=== PATIENT | female | born 1955 | race Asian ===

== ENCOUNTER 2017-04-07 15:07 | Emergency (ER) | payer OTHER ==
[~2017-04-07] VITALS: Ht 162.6 cm; Wt 114.0 kg
[~2017-04-07 15:07] MED LIST: ALLO300T PO; AMOX875T PO; ASPI-496 PO; CHOL500014 PO; INDO50CA PO; LISI-170 PO; METF500T4 PO; PRAV40TA2 PO
[2017-04-07 16:39] LABS: HEMATOCRIT 44.6 % (34.6-47.8); HEMOGLOBIN 14.8 g/dL (11.7-16.4); WHITE BLOOD COUNT 8.1 x10^3/uL (3.4-10)
[2017-04-07] MEDS ORDERED: FLEC100T PO (16:46)
[2017-04-07] MEDS ORDERED: APIX5TAB PO (16:46)
[2017-04-07 16:49] LABS: BLOOD UREA NITROGEN 19 mg/dL (7-18)
[2017-04-07 16:53] LABS: ASPARTATE AMINO TRANSFERASE 56 U/L (15-37)
[2017-04-07] MEDS ORDERED: GADOBUTROL 10 MMOL/10 ML PFS ONE (17:12)
[2017-04-07 17:23] LABS: PATH.CAST-FLAG NOT PRESENT; SPERM-FLAG NOT PRESENT; SRC-FLAG NOT PRESENT; XTAL-FLAG NOT PRESENT; YLC-FLAG NOT PRESENT
[2017-04-07 17:53] VITALS: BP 128/79
== END 2017-04-07 18:53 | disposition home or self-care (01) ==
LOC: ED 18:47
DX: R20.9 Unspecified disturbances of skin sensation (principal); E78.5 Hyperlipidemia, unspecified; E11.9 Type 2 diabetes mellitus without complications; I10 Essential (primary) hypertension; M10.9 Gout, unspecified
CPT/HCPCS: 36415; 70553; 72110; 80053; 81001; 85025; 87086; 93005; 99285; A9585

== ENCOUNTER → 2017-05-30 | Outpatient (CLI) | payer OTHER ==
[~2017-05-30] MED LIST changes: +APIX5TAB PO; -CHOL500014 PO; +CHOL500045 PO; +FLEC100T PO
== END | disposition home or self-care (01) ==
LOC: CFH 06:36
PROVIDERS: ATTEND Family Medicine
DX: R10.2 Pelvic and perineal pain (principal)
CPT/HCPCS: 76856

== ENCOUNTER 2019-01-28 10:38 | Emergency (ER) | payer OTHER ==
[~2019-01-28] VITALS: Ht 167.6 cm; Wt 110.7 kg
[~2019-01-28 10:38] MED LIST changes: -INDO50CA PO; +INDO50CA5 PO; +METF500T17 PO; -METF500T4 PO
[2019-01-28] MEDS ORDERED: ASPIRIN 81 MG TABLET CHEW PO ONE (13:00)
--- NOTE | 2019-01-28 13:09 | NUR ---
FROM LOBBY TO ROOM AT THIS TIME
--- NOTE | 2019-01-28 13:10 | NUR ---
BJORN RN: PT PRESENTED TO ED D/T N/V AND LIGHTHEADEDNESS X1 WEEK. PT STATES FEELING INCREASINGLY WORSE SINCE THIS AM. PT ALSO STATES HAS SOB. +NONPRODUCTIVE COUGH. FAMILY AT BEDSIDE.
[2019-01-28] MEDS ORDERED: SIMV5TAB14 PO (13:12)
[2019-01-28 13:31] LABS: MEAN CORPUSCULAR HEMOGLOBIN 28.7 pg (27.0-34.8); MEAN CORPUSCULAR HGB CONC 32.5 g/dL (32.4-35.8); MEAN CORPUSCULAR VOLUME 88.1 fL (80-100); MEAN PLATELET VOLUME 6.8 fL (7.4-10.4); PLATELET COUNT 355 x10^3/uL (130-400); RED BLOOD COUNT 5.13 x10^6/uL (3.82-5.3); RED CELL DISTRIBUTION WIDTH 13.7 % (9.6-15.2)
[2019-01-28 13:42] LABS: ALBUMIN 3.7 g/dL (3.4-5.0); ANION GAP 9 mmol/L (5-15); CALCIUM 8.8 mg/dL (8.5-10.1); CHLORIDE 105 mmol/L (98-107)
[2019-01-28] MEDS ORDERED: ASPIRIN 81 MG TABLET CHEW ONE (13:44)
[2019-01-28 13:47] LABS: CREATININE 1.21 mg/dL (0.55-1.02); TROPONIN I < 0.015 ng/mL (0.000-0.045)
--- NOTE | 2019-01-28 13:56 | NUR ---
DR PENALOZA AT BEDSIDE, PT ASSESSMENT & POC DISCUSSED, QUESTIONS ANSWERED. CALL LIGHT W/I REACH, FAMILY AT BEDSIDE.
[2019-01-28] MEDS ORDERED: SODIUM CHLORIDE 0.9%, 500ML IVBOLUS ONE (14:00)
[2019-01-28 14:14] LABS: BASOPHILS # (AUTO) 0.14 x10^3/uL (0-0.1); BASOPHILS % (AUTO) 1 % (0-1); EOSINOPHILS # (AUTO) 0.12 x10^3/uL (0-0.4); EOSINOPHILS % (AUTO) 1 % (1-7); LYMPHOCYTES # (AUTO) 1.62 x10^3/uL (1-3.4); LYMPHOCYTES % (AUTO) 10 % (22-44); MD SCAN; MONOCYTES # (AUTO) 0.75 x10^3/uL (0.2-0.8); MONOCYTES % (AUTO) 5 % (2-9); NEUTROPHILS # (AUTO) 13.64 x10^3/uL (1.8-6.8); NEUTROPHILS % (AUTO) 84 % (42-75)
[2019-01-28] MEDS ORDERED: OMNIPAQUE 350 MG/ML, 100ML BOTTLE ONE (15:30)
--- NOTE | 2019-01-28 15:37 | NUR ---
PT OOB AND AMBULATED UPRIGHT STEADY GAIT, SP02 MONITORED DURING ACTIVITY. SP02 MAINTAINED GREATER THAN 96% AND HR BETWEEN 88-92. DR PENALOZA UPDATED.
[2019-01-28] MEDS ORDERED: CEFTRIAXONE PMX 1GM/50ML 50 ML ONE (15:52)
[2019-01-28] MEDS ORDERED: AZITHROMYCIN 500 MG TABLET ONE (15:52)
[2019-01-28] MEDS ORDERED: AZITHROMYCIN 500 MG TABLET PO ONE (16:00)
[2019-01-28] MEDS ORDERED: CEFTRIAXONE PMX 1GM/50ML 50 ML IV ONE (16:00)
[2019-01-28 16:31] VITALS: BP 130/70
--- NOTE | 2019-01-28 16:32 | NUR ---
PT INSTRUCTED ON USE OF IS, EXCELLENT RTN DEMONSTRATION VOL 1500ML. Patient/Caregiver given discharge instructions and they have confirmed that they understand the instructions. Patient ambulatory with steady gait.
== END 2019-01-28 16:33 | disposition home or self-care (01) ==
LOC: ED 14:20
DX: J15.9 Unspecified bacterial pneumonia (principal); I10 Essential (primary) hypertension; E11.9 Type 2 diabetes mellitus without complications; I48.91 Unspecified atrial fibrillation
CPT/HCPCS: 36415; 71046; 71260; 80048; 82040; 83690; 83880; 84484; 85025; 93005; 96365; 99284; J0696; J7040; Q9967

== ENCOUNTER 2019-02-10 06:38 | Emergency (ER) | payer OTHER ==
[~2019-02-10] VITALS: Ht 165.1 cm; Wt 112.5 kg
[~2019-02-10 06:38] MED LIST changes: +SIMV5TAB14 PO
--- NOTE | 2019-02-10 06:51 | NUR ---
Pt presents to ed c/o sob this am. States recent tx for pneumonia w/ abx. Denies any associated cp. States sob worse while lying down. No increased wob noted. Talking in full sentences. Lung sounds clear in all nguyen. All monitoring applied. Vss. Call light within reach. Family at bedside.
--- NOTE | 2019-02-10 06:52 | NUR ---
Report given to Gilberto nick.
[2019-02-10] MEDS ORDERED: ALBUTEROL/IPRATROPIUM 2.5MG/0.5MG, 3 ML ONE (07:28)
[2019-02-10] MEDS ORDERED: ALBUTEROL/IPRATROPIUM 2.5MG/0.5MG, 3 ML NPPB SCH (07:30)
[2019-02-10 07:41] LABS: BASOPHILS # (AUTO) 0.03 x10^3/uL (0-0.1); BASOPHILS % (AUTO) 0 % (0-1); EOSINOPHILS # (AUTO) 0.26 x10^3/uL (0-0.4); EOSINOPHILS % (AUTO) 3 % (1-7); LYMPHOCYTES % (AUTO) 29 % (22-44); MD NO; MEAN CORPUSCULAR HEMOGLOBIN 28.8 pg (27.0-34.8); MEAN CORPUSCULAR VOLUME 87.2 fL (80-100); MEAN PLATELET VOLUME 6.7 fL (7.4-10.4); MONOCYTES # (AUTO) 0.83 x10^3/uL (0.2-0.8); MONOCYTES % (AUTO) 9 % (2-9); NEUTROPHILS # (AUTO) 5.12 x10^3/uL (1.8-6.8); NEUTROPHILS % (AUTO) 58 % (42-75); PLATELET COUNT 404 x10^3/uL (130-400); RED BLOOD COUNT 4.73 x10^6/uL (3.82-5.3); RED CELL DISTRIBUTION WIDTH 13.9 % (9.6-15.2)
[2019-02-10 07:47] LABS: ALANINE AMINOTRANSFERASE 26 U/L (12-78); ALBUMIN 3.5 g/dL (3.4-5.0); ANION GAP 8 mmol/L (5-15); CALCIUM 9.1 mg/dL (8.5-10.1); CHLORIDE 105 mmol/L (98-107); CREATININE 1.35 mg/dL (0.55-1.02)
[2019-02-10 07:52] LABS: ALKALINE PHOSPHATASE 73 U/L (45-117); BILIRUBIN,TOTAL 0.5 mg/dL (0.2-1.0); TOTAL PROTEIN 7.8 g/dL (6.4-8.2); TROPONIN I < 0.015 ng/mL (0.000-0.045)
--- NOTE | 2019-02-10 07:58 | NUR ---
WARM BLANKET GIVEN. PT REPORTS OF RIGHT ANKLE PAIN. PA NOTIFIED.
[2019-02-10 08:37] VITALS: BP 137/86
--- NOTE | 2019-02-10 08:55 | NUR ---
REFUSED WALKER AND BOOT FOR ANKLE
== END 2019-02-10 09:17 | disposition home or self-care (01) ==
LOC: ED 08:49
DX: S93.401A Sprain of unspecified ligament of right ankle, initial encounter (principal); R06.00 Dyspnea, unspecified; E11.22 Type 2 diabetes mellitus with diabetic chronic kidney disease; I12.9 Hypertensive chronic kidney disease with stage 1 through stage 4 chronic kidney disease, or unspecified chronic kidney disease; N18.9 Chronic kidney disease, unspecified; E78.5 Hyperlipidemia, unspecified; X58.XXXA Exposure to other specified factors, initial encounter; Y93.89 Activity, other specified; Y92.89 Other specified places as the place of occurrence of the external cause; Y99.8 Other external cause status
CPT/HCPCS: 36415; 71046; 73590; 73610; 80053; 83880; 84484; 85025; 93005; 94640; 99284; J7512; J7620

== ENCOUNTER 2020-11-21 14:11 | Observation (INO) | payer SELFPAY ==
[~2020-11-21] VITALS: Ht 162.6 cm; Wt 114.5 kg
[~2020-11-21 14:11] MED LIST changes: +INDO50CA15 PO; -INDO50CA5 PO
[2020-11-21] MEDS ORDERED: ASPIRIN 81 MG TABLET CHEW PO ONE (14:30)
[2020-11-21 15:08] LABS: BASOPHILS % (AUTO) 1 % (0-1); EOSINOPHILS % (AUTO) 15 % (1-7); LYMPHOCYTES % (AUTO) 31 % (22-44); MEAN CORPUSCULAR HEMOGLOBIN 29.6 pg (27.0-34.8); MEAN CORPUSCULAR HGB CONC 33.7 g/dL (32.4-35.8); MONOCYTES % (AUTO) 12 % (2-9); NEUTROPHILS % (AUTO) 41 % (42-75); PLATELET COUNT 375 x10^3/uL (130-400); RED BLOOD COUNT 4.79 x10^6/uL (3.82-5.3); RED CELL DISTRIBUTION WIDTH 13.9 % (9.6-15.2)
[2020-11-21 15:09] LABS: MD NO
[2020-11-21 15:18] LABS: ALBUMIN 3.6 g/dL (3.4-5.0); ANION GAP 6 mmol/L (5-15); CALCIUM 8.7 mg/dL (8.5-10.1); CHLORIDE 107 mmol/L (98-107); CREATININE 1.12 mg/dL (0.55-1.02)
[2020-11-21 15:22] LABS: TROPONIN I < 0.015 ng/mL (0.000-0.045)
--- NOTE | 2020-11-21 15:30 | NUR ---
casino porter note: Pt to room from lobby.
[2020-11-21] MEDS ORDERED: ASPIRIN 81 MG TABLET CHEW ONE (15:45)
[2020-11-21] MEDS ORDERED: MULT-204 PO (15:53)
[2020-11-21] MEDS ORDERED: CHRO200T10 PO (15:54)
[2020-11-21] MEDS ORDERED: ATOR10TA PO (15:55)
[2020-11-21] MEDS ORDERED: FLEC100T PO (15:56)
[2020-11-21] MEDS ORDERED: LISI-170 PO (15:56)
[2020-11-21] MEDS ORDERED: CHRO1CAP PO (15:58)
--- NOTE | 2020-11-21 16:08 | NUR ---
ASSUMED CARE OF PATIENT IN ROOM 16. PT AMAIRANI AT BEDSIDE. PT C/O INTERMITTANT CHEST PAIN X 3 MONTHS, NONE AT THIS TIME, INCREASING FREQUENCY LATELY.
[2020-11-21] MEDS ORDERED: SODIUM CHLORIDE FLUSH 10ML SYR IVF PRN (18:30)
--- NOTE | 2020-11-21 18:40 | NUR ---
SBAR TELEPHONE HAND-OFF REPORT GIVEN TO CHRISTINE BURGOS. PT READY TO GO TO HOSPITAL ROOM.
--- NOTE | 2020-11-21 18:59 | NUR ---
BEDSIDE REPORT RECEIVED FROM GRACIELA KING
[2020-11-21] MEDS ORDERED: NITROGLYCERIN 0.4 MG BOTTLE (25 TABS) SL PRN (19:00)
[2020-11-21] MEDS ORDERED: ASPIRIN 325 MG TABLET EC PO ONE (19:00)
[2020-11-21] MEDS ORDERED: ONDANSETRON 2MG/ML, 2ML IV PRN (19:00)
[2020-11-21] MEDS ORDERED: morphine SULFATE 10 MG/ML, 1ML IVPush PRN (19:00)
[2020-11-21] MEDS ORDERED: HEPARIN 5,000 UNITS/ML, 1ML ONE (19:09)
[2020-11-21] MEDS ORDERED: ASPIRIN 325 MG TABLET EC ONE (19:09)
[2020-11-21] MEDS: HEPARIN 5,000 UNITS/ML, 1ML SQ SCH (19:10)
[2020-11-21 19:40] VITALS: BP 107/72
[2020-11-21 19:49] LABS: CHOLESTEROL, TOTAL 154 mg/dL (140-239); TRIGLYCERIDES 300 mg/dL (50-200); VLDL CHOLESTEROL 60 mg/dL (0-25)
[2020-11-21 19:52] LABS: HDL CHOL % 33 % (28-40); HDL CHOLESTEROL (DIRECT) 51 mg/dL (40-60); LDL CHOLESTEROL,CALCULATED 43 mg/dL (54-169); LDL/HDL RATIO 0.8 (0.5-3.0); TROPONIN I < 0.015 ng/mL (0.000-0.045)
[2020-11-21] MEDS: FLECAINIDE 100MG TABLET PO SCH (20:40)
[2020-11-21] MEDS ORDERED: ATORVASTATIN 10 MG TABLET PO SCH (21:00)
[2020-11-21 22:20] LABS: TROPONIN I < 0.015 ng/mL (0.000-0.045)
[2020-11-22 00:25] VITALS: BP 106/73
[2020-11-22 00:48] LABS: TROPONIN I < 0.015 ng/mL (0.000-0.045)
[2020-11-22] MEDS: HEPARIN 5,000 UNITS/ML, 1ML SQ SCH ×2 (03:03→11:35)
[2020-11-22 05:20] LABS: CHLORIDE 108 mmol/L (98-107)
[2020-11-22 05:28] LABS: ALANINE AMINOTRANSFERASE 34 U/L (12-78); ALBUMIN 3.3 g/dL (3.4-5.0); ALKALINE PHOSPHATASE 67 U/L (45-117); ANION GAP 7 mmol/L (5-15); BILIRUBIN,TOTAL 0.3 mg/dL (0.2-1.0); CALCIUM 9.1 mg/dL (8.5-10.1); CREATININE 0.98 mg/dL (0.55-1.02); TOTAL PROTEIN 7.2 g/dL (6.4-8.2)
[2020-11-22] MEDS ORDERED: ASPIRIN 325 MG TABLET EC PO SCH (06:00)
[2020-11-22 07:11] VITALS: BP 119/81
[2020-11-22] MEDS: FLECAINIDE 100MG TABLET PO SCH (07:55)
[2020-11-22] MEDS ORDERED: REGADENOSON 0.4 MG/5 ML SYRINGE ONE (07:56)
[2020-11-22] MEDS ORDERED: LISINOPRIL 20 MG TABLET PO SCH (09:00)
== END 2020-11-22 13:25 | disposition home or self-care (01) ==
LOC: ED 15:40 → INTOOBSV 18:15 → EDIP 18:15 → 5SO 19:21 → DCLOUNGE 11-22 13:23 → UNDODISIN 11-22 13:25
PROVIDERS: ADMIT Internal Medicine; ATTEND Hospitalist
DX: R07.89 Other chest pain (principal); I48.91 Unspecified atrial fibrillation; I10 Essential (primary) hypertension; E11.9 Type 2 diabetes mellitus without complications; E78.5 Hyperlipidemia, unspecified; E78.1 Pure hyperglyceridemia; Z79.84 Long term (current) use of oral hypoglycemic drugs; Z79.899 Other long term (current) drug therapy; Z79.01 Long term (current) use of anticoagulants
CPT/HCPCS: 36415; 71045; 78452; 80048; 80053; 80061; 82040; 84484; 85025; 93005; 93017; 93306; 96372; 99285; A9502; G0378; J1644; J2785